=== PATIENT | male | born 1935 | race Caucasian/White ===

== ENCOUNTER 2016-07-21 12:35 | Day surgery (SDC) | payer MEDICARE, OTHER ==
[~2016-07-21] VITALS: Ht 177.8 cm; Wt 63.9 kg
[~2016-07-21 12:35] MED LIST: CETI10CA PO; CLIN-77 PO; Clindamycin 900 mg/50 mL D5W IV ONE; Dexamethasone 4 mg/mL Inj IVPUSH PRN; EPHEDrine Sulfate 50 mg/mL Inj IVPUSH PRN; FLUT9.9S NS; HYDROmorphone 1 mg/mL Inj IVPUSH PRN; INSU100V7 SUBQ; INSU200I SQ; LEVO750T39 PO; LOPE1TAB13 PO; Labetalol 5 mg/mL 4 mL Inj IV PRN; Lactated Ringer's 1,000 ML IV SCH; Lactated Ringer's 500 ML IV PRN; METF500T4 PO; MetoCLOpramide 5 mg/mL 2 mL Inj IVPUSH PRN; OMEP20TA24 PO; ONDA-54 PO; OXYC5TAB72 PO; Ondansetron 2 mg/mL 2 mL Inj IVPUSH PRN; PROB500T8 PO; Phenylephrine 10,000 mCg/mL Inj IVPUSH PRN; [UNRECOGNIZED DRUG - CODE] MC; fentaNYL-PF 50 mCg/mL 2 mL Inj IVPUSH PRN; hydrALAZINE 20 mg/mL Inj IVPUSH PRN
[2016-07-21] MEDS ORDERED: Propofol 10,000 mCg/mL 20 mL Inj ONE (12:36)
[2016-07-21] MEDS ORDERED: fentaNYL-PF 50 mCg/mL 2 mL Inj ONE (12:36)
[2016-07-21] MEDS ORDERED: Ketamine 10 mg/mL 20 mL Inj ONE (12:36)
[2016-07-21] MEDS ORDERED: Clindamycin 900 mg/50 mL D5W Premix IV ONE (13:28)
[2016-07-21 13:30] VITALS: BP 118/66; PULSE 73; RESP 14; O2SAT 98
[2016-07-21] MEDS ORDERED: Lactated Ringer's 1,000 ML IV ONE (13:30)
[2016-07-21] MEDS ORDERED: LACT1CAP67 PO (14:16)
--- NOTE | 2016-07-21 15:44 | PCM.HPANE ---
Patient Data Date of Service: Jul 21, 2016 Surgeon Admitting Provider: Attending Provider:Ko Lynch MD Primary Care Physician:Jero Tse MD Other Provider:Juana Pereira Anesthesia Reason for Visit Right Neck Lesion Ht/WT & BMI Height (Feet): 5 Height (Inches): 10 Weight (Kilograms): 63.9 Body Mass Index 20.00 Allergies Coded Allergies: Penicillins (Verified Allergy, Severe, Hives, 07/21/16) per h&p Past Anesthesia History Anesthesia History: Positive for:: Abnormal Airway (radical neck dissection, exc rt 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 2015), Denies:: Anesthesia Reactions, Fam Anesthesia Reaction, Fam Malignant Hypertherm, Malignant Hyperthermia Diabetes History Hx Diabetes?: Yes Type of Diabetes: Type II Glycemic Control: Insulin & Oral Medication Current Bedside Blood Glucose: 80 MRSA MRSA: No Medications Blood Thinner: Aspirin Hypertension Medication: No Home Meds Incl Beta Cinthia: No Reported Medications Lactobacillus Combination No.4 (Probiotic)1 Each Capsule1 Each PO 07/21/16 Insulin Lispro (Humalog Kwikpen)200 Unit/Ml (3 Ml) Insuln.pen5-10 Unit SQ DIRECTED PRN blood glucose 07/19/16 Insulin Glargine (Lantus U100 Insulin Vial)100 Unit/Ml Vial20 Unit SUBQ QPM #1 VIAL Ref 0 07/19/16 Metformin 500 Mg Gsketa581 Mg PO BID Ref 0 2 tabs morning, 1 tab hs 10/29/15 Omeprazole Magnesium (Prilosec Otc)20 Mg Tablet.dr20 Mg PO DAILY #1 PKG Ref 0 10/29/15 Probenecid 500 Mg Rokbhn875 Mg PO BID 10/13/15 Fluticasone Propionate (Flonase Allergy Relief)50 Mcg/Actuation Mckenney.susp9.9 Ml NS 07/02/15 Cetirizine HCl (Zyrtec)10 Mg Mjposyj93 Mg PO HS PRN ALLERGIES #30 CAPSULE Ref 0 07/02/15 Discontinued Reported Medications Loperamide/Simethicone (Imodium Multi-Symptom Rel Cplt)1 Each Tablet1 Each PO 05/05/16 Levofloxacin 750 Mg Keopoy833 Mg PO 03/24/16 oxyCODONE 5 Mg Tablet5 Mg PO Q4H PRN For Pain Ref 0 01/21/16 Clindamycin 150 Mg Pdftuhh312 Mg PO QID Ref 0 12/03/15 Trimethoprim, Micronized (Trimethoprim Micronized)25 Gm Oniaji43 Gm MC 2 tsp bid 11/12/15 Ondansetron 8 Mg Tablet4 Mg PO BID #50 Ref 1 ODT 07/22/15 Acetaminophen Extended Release (Tylenol Arthritis Pain Extended-Release)650 Mg Tablet.er650 Mg PO DAILY PRN For Pain 07/02/15 History History of ENT Problems?: Yes HEENT History: Positive for:: Abnormal Airway (radical neck dissection, exc rt 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 2015) Dysphagia Sinus Problem (hx of deviated septum) Denies:: Hearing Problem Other HEENT Pertinent History: pt hx of radical neck dissection, prior wound infections surg site, metal plate has been removed recently Hx of Heart Problems?: No Cardiovascular History: Denies:: AICD Atrial Fibrillation Chest Pain Coronary Artery Disease Edema Heart Murmur Hypertension Irregular Heartbeat Pacemaker Valvular Heart Disease Hx of Respiratory Problem?: Yes Respiratory History: Positive for:: Asthma (childhood) Dyspnea (With extreme moving/activity) Pneumonia (hx of pneumo during admission 10/2015- chest tube) Denies:: COPD Chest Surgery Cough Emphysema Hemoptysis Oxygen Administration Tuberculosis Use of C-PAP Machine Hx Neurologic Problems?: No Neurological History: Denies:: CVA Dementia Headaches Multiple Sclerosis Parkinson's Disease Seizures Hx of GI Problems?: Yes Gastrointestinal History: Positive for:: Gastroesphageal Reflux Heartburn (occasional) Denies:: Cirrhosis Diverticulitis Gastrointestinal Bleeding Hepatitis Hiatal Hernia Liver Disease Rectal Bleeding Other GI Pertinent History: PEG feeding tube in place Hx of Problems?: Yes Genitourinary History: Positive for:: Kidney Stones (remote hx of ) Denies:: HX of Hemodialysis Urinary Tract Infection (past hx not current) Male Hx: Denies:: Prostate Problems Skin History: Positive for:: History Skin Disorders? (right neck cyst current admission problem) Hx Musculoskeletal Problems?: Yes Musculoskeletal History: Positive for:: Back Injury (prior hx herniated disc) Denies:: Fibromyalgia Joint Replacement Myasthenia Gravis Hx of Psycho/Social Problems?: No Psycho Social History: Denies:: Anxiety Hx Depression Suicide Attempt Hx Surgeries?: Yes (head/ neck- multiple) Hx Any Other Health Problems?: Yes Other History: Positive for:: Cancer (metastatic head/neck) Hospitalization Denies:: Thyroid Disease History Blood Transfusions: Positive for:: Blood Transfuse Reaction Denies:: Blood Transfusions Hx Diabetes: YesBedside Blood Glucose: 80 Hx Alcohol Use: NoHx Substance Use: No Smoking Status: Never Smoker Have You Smoked inLast 12 mo: No Stop/Bang Treated for Sleep Apnea?: No Do You Have a CPAP Machine?: No S-Snoring: Do You Snore Loudly: No T-Tired: feel tired, fatigued: No O-Obsered: Observed not breath: No P-Blood Pressure: treated: No B- Body Mass Index > 35 kg/m2: No A- Age over 50: Yes N- Neck Large Circumference: No G- Gender Male: Yes KERRI Total Score: 2 KERRI Risk Assessment: Low Risk, <3 Yes Risk Assessment Category Category 1A: Patient has history of documented sleep apnea, and HAS NOT received any narcotic, sedative or anesthesia administration during this stay. Category 1B: Patient has history of documented sleep apnea, and HAS received any narcotic , sedative or anesthesia administration during this stay Category 2: Patient has SUSPECTED Obstructive Sleep Apnea, and HAS received any narcotic , sedative or anesthesia administration during this stay. Category 3: Patient has SUSPECTED Obstructive Sleep Apnea and HAS NOT received narcotic, sedative or anesthesia administration during this stay. Category 4: Outpatient in Procedural Areas with known sleep apnea or who screen positive for High Risk via the STOP/BANG questionnaire. Exam Exam Vital Signs Vital Signs Date Time Temp Pulse Resp B/P Pulse Ox O2 Delivery O2 Flow Rate FiO2 07/21/16 13:30 36.8 73 14 118/66 98 Room Air General Appearance: Alert, Oriented X3, Cooperative, No Acute Distress HEENT/AIRWAY: MP 4, Neck Movement, Mouth Opening (radiation to airway. looks very difficult. no ROM, no significant mouth opening.) Lungs: Clear to Auscultation, Normal Air Movement Heart: Exam Unremarkable, Regular Rate/Rhythm, No Murmurs/Rubs/Gallops Meds/Labs/Diagnostics Admission Meds Current Medications Lactated Ringer's (Lr) 1,000 ml @ ud STK-MED ONCE IV Last administered on 07/21t 13:30; Start 07/21/16 at 13:30; Stop 07/21/16 at 14:03; Status DC Bedside Blood Glucose: 80 Plan Impression Patient chart reviewed, patient interviewed and anesthestic plan with risks, benefits, and alternatives discussed, and informed consent obtained. NPO Status: 07/20 2199 ASA Physical Status: ASA2 Mod Systemic Disease Anesthetic Plan: MAC Bene/Risks/Altern/Consents: Yes HP Complete Prior to Induction: Yes Earl Champagne MD Jul 21, 2016 15:44
[2016-07-21] MEDS ORDERED: Bupivacaine 0.5%/EPI 50 mL Inj INFILTRATE ONE (15:59)
[2016-07-21] MEDS ORDERED: Bacitracin Ointment Packet TOPICAL ONE (16:09)
[2016-07-21 16:20] VITALS: BP 105/71; PULSE 73; RESP 16; O2SAT 97
[2016-07-21] MEDS ORDERED: HYDROcodone-APAP 5-325 mg Tablet PO PRN (16:30)
[2016-07-21 17:00] VITALS: BP 108/55; PULSE 66; RESP 15; O2SAT 98
--- NOTE | 2016-07-22 15:05 | OP ---
[address] [address] OPERATIVE REPORT PATIENT: OLYA WIGGINS : 1935 MR#: [id number] ADMIT: 07/21/2016 JOB ID: [id number] DATE OF SURGERY: 07/21/2016 PREOPERATIVE DIAGNOSIS(ES): Right neck lesion. POSTOPERATIVE DIAGNOSIS(ES): Right neck lesion. PROCEDURE: 1. Excision of right neck lesion, diameter of excision 2 cm. 2. Layered closure of right neck defect, total length of layered closure 5 cm. SURGEON: Ko Lynch M.D. LIFT BUILDER WHOLE: None. ANESTHESIA: MAC with local. COMPLICATIONS: None apparent. SPECIMEN: Right neck lesion to Pathology. ESTIMATED BLOOD LOSS: Minimal. DRAINS: None. 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 This was complicated by recurring infection necessitating hardware removal. The patient had the hardware removed late in 2015. The patient recovery course was delayed with wound break down, but did eventually heal up. The patient developed a lesion at the proximal or superior aspect of the previous incision. At this point, excision of the lesion is indicated for tissue diagnosis. PROCEDURES AND FINDINGS: The patient was identified in the preoperative area. Surgical site was marked. The patient was then taken back to the operating room and placed supine on the operating table. Appropriate time-outs were taken. General MAC was induced smoothly. The patient was then prepped and draped in the usual sterile manner. It was noted that patient has a whitish lesion right on the previous incision measuring approximately 2 cm x 1 cm. An ellipse was then designed to encompass the lesion. The superior border of the ellipse is the patient's previous incision. Local anesthesia was then infiltrated to the surgical site. Incision was then made along the ellipse with a #15 blade. I then deepened the incision down to the underlying scar tissue. I then encountered what appears to be the patient's sternocleidomastoid muscle. This area is quite scarred due to the previous surgeries and also due to radiation. The ellipse of skin was then elevated off of the sternocleidomastoid muscle and passed off to Pathology as a specimen. I then elevated the skin flap off of the sternocleidomastoid inferiorly. Superiorly I elevated the skin flap in the mid subcutaneous level up toward the jaw line. Overall, the skin did not want to mobilize significantly, but I was able to get enough mobilization for closure. I then started to reapproximate incision with several 3-0 Monocryl deep dermal sutures. It was noted that patient has significant length discrepancy and the inferior incision was longer. A Burow triangle was then taken out changing the closure to a T type of closure. Once the 3-0 Monocryl deep dermal sutures were placed, a layer of 4-0 nylon simple running suture was placed. The patient tolerated the procedure well. Needle count, sponge count and instrument counts were correct at the end of the procedure. The patient was transported to recovery in stable condition.
--- NOTE | 2016-07-22 20:53 | PCM.ANEP1 ---
Post Anesthesia Phase 1 PACU Phase 1 Assessment Date of Service: Jul 20, 2016 Anesthetic Administered: MAC Level of Alertness: Awake, talking WARNER's with Equal Strength: Yes Pain: No Nausea or Vomiting: No Oxygen Delivery: Room Air Lungs: Clear to Auscultation, Normal Air Movement Earl Champagne MD Jul 22, 2016 20:53
--- NOTE | 2016-07-22 20:54 | PCM.ANEP2 ---
Post Anesthesia Evaluation ASA/CMS Post Anesthesia VS in Patient's Normal Range?: Yes Resp Stable; Airway Patent?: Yes CV Function & Hydration Stable: Yes Mental Status Recovered?: Yes Pain control Satisfactory?: Yes N/V Control Satisfactory?: Yes Earl Champagne MD Jul 22, 2016 20:54
--- NOTE | 2016-07-23 10:38 | PATH ---
SURGICAL PATHOLOGY Attending Physician:Ko Lynch CASE STATUS: Signed Out PATIENT NAME: OLYA WIGGINS PID: [id number] : 1935 DATE COLLECTED:07/21/2016 00:00 SPECIMEN: Skin, biopsy CLINICAL HISTORY: RIGHT NECK LESION 1). RIGHT NECK LESION FINAL DIAGNOSIS: 1.SKIN EXCISION, RIGHT NECK REGION: INVASIVE CRATERFORM SQUAMOUS CARCINOMA, WELL-DIFFERENTIATED. TUMOR EXTENDS TO ONE PERIPHERAL EXCISIONAL MARGIN. ICD10 CODE C44.42 GROSS DESCRIPTION: The specimen is received in one formalin filled container labeled with the patient's name, sublabeled "R. neck lesion" and consists of a stephens-stewart rough friable elliptical-shaped portion of tissue which measures 3.0 x 1.3 x 0.7 CM. The tips are submitted in cassette A. The remaining sample serially sectioned into 6 pieces and entirely submitted in cassettes B., C. 07/22/2016 [facility] MICRO DESCRIPTION: See diagnosis. ICD-9 CODES: CPT CODES: 1: 02695 Electronically Signed Out Sukhdeep Roca MD [facility] [address], [place] [address] Technical component performed at [facility], [address] [place] [address] Ave[address], [place], [address]
[2016-08-18] MEDS ORDERED: LISI10TA PO (11:47)
== END 2016-07-21 23:59 | disposition home or self-care (01) ==
LOC: SAS 12:35
PROVIDERS: ATTEND Plastic Surgery
DX: C44.42 Squamous cell carcinoma of skin of scalp and neck (principal); Z92.3 Personal history of irradiation; R39.15 Urgency of urination; Z87.440 Personal history of urinary (tract) infections; E11.9 Type 2 diabetes mellitus without complications; K21.9 Gastro-esophageal reflux disease without esophagitis; J45.909 Unspecified asthma, uncomplicated; Z93.1 Gastrostomy status; Z79.84 Long term (current) use of oral hypoglycemic drugs; Z79.82 Long term (current) use of aspirin; Z79.4 Long term (current) use of insulin
CPT/HCPCS: 21556; 88305; J2250; J3010; J7120